=== PATIENT | male | born 1985 | race Caucasian/White ===

== ENCOUNTER 2017-06-29 16:55 | Emergency (ER) | payer MEDICAID ==
[2017-06-29 18:55] VITALS: BP 141/88
== END 2017-06-29 18:55 | disposition home or self-care (01) ==
LOC: ED 16:55
DX: K62.5 Hemorrhage of anus and rectum (principal)

== ENCOUNTER 2020-05-17 21:23 | Emergency (ER) | payer MEDICAID ==
[~2020-05-17] VITALS: Ht 175.3 cm; Wt 94.8 kg
[2020-05-17 21:57] VITALS: BP 140/93; Ht 175.3 cm; Wt 94.8 kg
== END 2020-05-18 00:34 | disposition home or self-care (01) ==
LOC: ED 21:23
DX: K29.70 Gastritis, unspecified, without bleeding (principal); I10 Essential (primary) hypertension
CPT/HCPCS: J1885; Q0162